=== PATIENT | male | born 1965 | race African-American/Black ===

== ENCOUNTER → 2019-04-14 12:43 | Outpatient (CLI) | payer OTHER, SELFPAY ==
--- NOTE | 2019-04-14 | DI.MRI.S_ITS ---
PROCEDURE: MR HIPS [facility] WO CON INDICATIONS: Trochanteric bursitis, right hip - left pain TECHNIQUE: Noncontrast coronal T1 spin echo and STIR through the bony pelvis. Coronal and axial T2 fast spin echo with fat saturation, sagittal T1 spin echo, and oblique axial T2 fast spin echo with fat saturation through the hip. COMPARISON: [facility] Vernon Appling, CR, XR PELVIS WITH BILATERAL LATERAL HIPS, 03/02/2019, 15:29. FINDINGS: Image quality: Excellent. Bones and joints: No evidence of fracture. Lower lumbar spondylosis. Mild bilateral hip degeneration. On the LEFT, Tendons and ligaments: The gluteus medius and minimus tendons appear mildly thickened with internal T2 hyperintensity in keeping with tendinopathy/partial tear. There is also low signal focus measuring 5 mm seen adjacent to or within the left gluteus medius on image 13 series 10, in keeping with calcific tendinitis, possibly calcific bursitis. The nearby proximal iliotibial band appears intact. The iliopsoas tendon appears intact, without adjacent bursal fluid collections or evidence for impingement syndrome. The origin of the hamstring tendon is intact at the ischial tuberosity, as well as the associated sacrotuberous ligament. The straight and reflected heads of the rectus femoris muscle origin appear intact, as well as the conjoint tendon. The ligamentum teres appears intact where visualized. Labrum and cartilage: The acetabular labrum appears intact in the absence of intra-articular contrast. Cartilage surface of the femoral head appears of normal thickness. The alpha angle of the femur is within normal limits at less than 55 degrees. On the RIGHT, Tendons and ligaments: The gluteus medius and minimus tendinopathy is seen although to a lesser extent compared to the left. The nearby proximal iliotibial band appears intact. The iliopsoas tendon appears intact, without adjacent bursal fluid collections or evidence for impingement syndrome. The origin of the hamstring tendon is intact at the ischial tuberosity, as well as the associated sacrotuberous ligament. The straight and reflected heads of the rectus femoris muscle origin appear intact, as well as the conjoint tendon. The ligamentum teres appears intact where visualized. Labrum and cartilage: The acetabular labrum appears intact in the absence of intra-articular contrast. Cartilage surface of the femoral head appears of normal thickness. The alpha angle of the femur is within normal limits at less than 55 degrees. Soft tissues: Visualized muscles demonstrate normal bulk and internal signal. Quadratus femoris muscle demonstrates no internal edema to suggest ischiofemoral impingement bilaterally. The proximal sciatic neurovascular bundle appears normal adjacent to the hamstring tendons. No free pelvic fluid. Bladder wall thickness is normal. Genitourinary structures and bowel loops appear normal where visualized. IMPRESSION: Bilateral hip abductor insertional tendinopathy, left greater than right. Low signal focus in the region of or involving the left gluteus medius tendon suggestive of calcific tendinitis/bursitis. Dictated by: Otoniel Obrien M.D. on 04/14/2019 at 15:34 Approved by: Otoniel Obrien M.D. on 04/14/2019 at 15:47
== END ==
PROVIDERS: Visit Provider Orthopaedic Surgery
DX: M70.61 Trochanteric bursitis, right hip (principal); M25.552 Pain in left hip
CPT/HCPCS: 73721